=== PATIENT | male | born 1955 | race Caucasian/White ===

== ENCOUNTER → 2020-03-27 09:03 | Outpatient (CLI) | payer OTHER, MEDICARE, SELFPAY ==
[2020-03-27 10:51] LABS: COVID19 -Nasal RAPID Negative (Negative)
== END ==
PROVIDERS: Visit Provider Nurse Practitioner Family
DX: Z01.812 Encounter for preprocedural laboratory examination (principal); Z20.822 Contact with and (suspected) exposure to COVID-19
CPT/HCPCS: 87635

== ENCOUNTER 2020-03-28 09:40 | Day surgery (SDC) | payer OTHER, MEDICARE, SELFPAY ==
[2020-03-28] VITALS (19 sets, daily range): BP systolic 72–164; BP diastolic 7–92; PULSE 63–91; RESP 9–20; TEMP 36.2–37; O2SAT 93–100; BMI 33.3
--- NOTE | 2020-03-28 | DI.RAD.S_ITS ---
PROCEDURE: XR LUMBAR SPINE 2-3V INDICATIONS: L2-3 MICRODISCECTOMY TECHNIQUE: 2 operative views of the lumbar spine were acquired. COMPARISON: [facility], MR, MR LUMBAR SPINE WITHOUT CONTRAST, 01/17/2020, 17:59. FINDINGS: Operative images localize the L2-L3 level posteriorly for surgery. IMPRESSION: Operative imaging localizes L2-L3 posteriorly. Dictated by: Stanislav Daomn M.D. on 03/28/2020 at 12:28 Approved by: Stanislav Damon M.D. on 03/28/2020 at 12:29
--- NOTE | 2020-03-28 10:12 | PM.PREOP ---
Pre-operative Note COVID-19 COVID-19 status: Negative Result date/Date tested (Pos, Neg/Pending): 03/27/20 Interval Note History & Physical reviewed/Exam performed by Physician: Yes Changes to H&P: No
[2020-03-28] MEDS: SODIUM CHLORIDE 0.9% 1,000 ML 84 ML IV ×2 (10:30→13:05)
[2020-03-28] MEDS: CEFAZOLIN 2 GM/100 ML FROZ.PIGGY IV ×2 (10:48→19:20)
--- NOTE | 2020-03-28 11:04 | SUR.OPER ---
Prone on spine table, head in foam head support, padded chest and pelvic supports, gel pad at knees, lower legs supported by pillows; nipples, genitalia and toes free of pressure, arms secured on foam padded arm boards at <90 degrees abduction. Tape over blanket at thigh secured to table.
[2020-03-28] MEDS: SODIUM CHLORIDE 0.9% 1,000 ML, GENTAMICIN 80 MG IRR (11:10)
[2020-03-28] MEDS: THROMBIN (RECOMBINANT) 5,000 UNIT VIAL 5000 UNIT TOP (11:10)
[2020-03-28] MEDS: BUPIVACAINE 0.25% (PF) 8 ML, fentaNYL 100 MCG INJ (11:11)
--- NOTE | 2020-03-28 11:55 | P.OP_ITS ---
Operative Date/Time/Diagnoses Date of procedure: 03/28/20 Time of procedure: 11:56 Pre-op diagnosis: Lumbar disc herniation with radiculopathy History of lumbar laminectomy Post-op diagnosis: same Procedure & Clinicians Procedure: L2-3 revision laminectomy and diskectomy on the left Use of microscope Placement of epidural catheter Same procedure as scheduled: Yes Indications: [age] year old male with intractable pain from a lumbar disc herniation. They had failed conservative management and requested operative intervention. Risks and benefits of surgery were discussed and appropriate consents were obtained. Surgeon: Mustapha Anand Wrapper Hands Sprayer: Ani Canela Anesthesia Type: General Operative Notes Findings: None Closure Type: primary Specimen(s): none sent Estimated Blood Loss (mL): 20 Procedure in detail: Patient was brought to the operating room and intubated on the table. A time-out was performed. There were rolled over the well-padded prone position on the Noah table. The back was prepped and draped in standard sterile fashion. Preoperative antibiotics were given. Using fluoroscopy, a 3 cm incision was made to the well marked left of the midline at the L2-3 level. We used Bovie to come down to and split the fascia. We then used the NuVasive MaXcess dilators with fluoroscopy and then opened our retractors. The inferior aspect was quite scarred in and we had to use the Bovie to cut through the scar tissue to be able to spread our retractor. The soft tissue was cleared off with Bovie, a marker was placed, an x-ray was taken to confirm positioning. We then brought in the microscope. A combination of high-speed bur and Kerrison were used to perform a revision left-sided hemilaminotomy and hemifacetectomy. We carefully tracked along the edge of the lamina with our curette. Once we opened up the lamina at L2-3, we tracked underneath to the L3 lamina and carefully removed the cephalad portion of the lamina as well, carefully clearing off scar adhesions from his last surgery at L3. We carefully retracted the dura and exposed the disc. We swept the ball probe from cephalad to caudally and freed up the extruded fragment away from the undersurface of the dura. This was cleared with bipolar. A scalpel used to perform an annulotomy and a pituitary was used to perform the diskectomy. The ball probe was swept underneath the dura along the disc to make sure there were no further loose fragments. This was also placed into the disc and moved around to make sure there were no further loose fragments. Once everything was adequately decompressed, the wound was copiously irrigated. An epidural catheter was filled with 100 mcg of fentanyl and 8 mL of 0.25% Marcaine. The dura was carefully depressed under the laminotomy site and the catheter was advanced 6 cm cephalad. The retractor was removed and the fascia was closed. The epidural catheter was then injected without resistance and removed. Vancomycin powder was placed in the wound. Superficial and skin were closed. Sterile dressing was placed. The patient was then rolled over, transferred to the stretcher, and brought to recovery room without complications. Complications: none Post-operative Condition: stable Disposition: PACU Plan for aftercare: Overnight admission due to his renal concerns. Up with physical therapy
[2020-03-28] MEDS: INSULIN REGULAR 100 UNIT/ML 3 ML VIAL IV ×2 (12:48→13:22)
[2020-03-28] MEDS: HYDROMORPHONE 2 MG INJ IV ×2 (12:53→12:58)
[2020-03-28] MEDS: fentaNYL 100 MCG/2 ML INJ IV (13:19)
[2020-03-28] MEDS: OXYCODONE/ACETAMINOPHEN 5/325 TABLET 1 TAB PO (13:26)
--- NOTE | 2020-03-28 13:33 | SUR.PHASEI ---
Called into OR around 1310 too report BS of 251after 2 units IV insulin admin and pt's c/o excrutiating pain in R shoulder. States pain in joint, not chest. feels like i was hung from my shoulder. Spoke with Dr Valentin, order for 4 units IV insulin and states pain likely d/t positioning in surgery.
--- NOTE | 2020-03-28 14:01 | SUR.PHASEI ---
pt transported to room 224. Pt continues to report R shoulder pain 8-10 even though he received fentanyl 50mcg, dilaudid 1mg, and 1 percocet. Pt was repostioned on left side which seemed to provide some relief. Suggested hospitalist be notified and I will also notify Dr Anand. Bedside blood sugar showed 227 after receiving 4 units for a BS of 256 and 2 units for BS of 194 prior to transport. Pt stated he had not taken his metformin fro at least 3 days prior to having his procedudre today. WEN Escobedo assumed care of this pt who was in stable condition upon my departure.
[2020-03-28] MEDS: HYDROMORPHONE 0.5 MG INJ IV (14:18)
[2020-03-28] MEDS: SODIUM CHLORIDE 0.9% 1,000 ML 100 ML IV (14:19)
--- NOTE | 2020-03-28 14:19 | PC.NURSE ---
Addendum entered by Fanny Driver R.N. 03/28/20 14:58: Call into , Juliann, she will provide Cylsporine from home as we do not have this strength in house. Update provided on POC.. Pt reporting pain better controlled after Dilaudid. However, Pt is unable to answer all of admit questions now with sedation. Will address with Juliann when she arrives. Report to Araceli York. Original Note: Admission Pt arrived from PACU via stretcher, c/o 10/10 R shoulder pain. Discussed positioning during procedure. Medicated with IV Dilaudid. Pt able to turn L side laying to help with discomfort. Drowsy, but able to wake to voice. IV NS started. Back dressing CDI. CMS +, able to lift legs off bed, difficulty against resistance. CBG checked, had rec'd insulin in PACU. Pt dozing intermittently, continues to report 10/10 pain to shoulder. Reviewed call WILFREDO llamas active. POsitioned for comfort at this time. RA 94%
--- NOTE | 2020-03-28 14:56 | PT-IP ANOTE ---
checked with nurse and stated that pt is not ready for PT. stated that pt is out cold and was given dilauded due to severe pain. will f/u tomorrow.
[2020-03-28] MEDS: INSULIN ASPART 100 UNIT/ML INSULN PEN SUBCUT ×2 (16:31→21:09)
--- NOTE | 2020-03-28 20:51 | RT ---
Went to assess pt for RT consul and jill @ 2032.. Pt is currently sleeping. No respiratory distress noted.
[2020-03-28] MEDS: SODIUM BICARBONATE 650 MG TABLET PO (21:09)
[2020-03-28] MEDS: SENNOSIDES 8.6 MG TABLET 17.2 MG PO (21:14)
[2020-03-28] MEDS: ATORVASTATIN 20 MG TABLET 10 MG PO (21:14)
[2020-03-28] MEDS: DOCUSATE 100 MG CAPSULE PO (21:14)
[2020-03-28] MEDS: MYCOPHENOLATE MOFETIL 500 MG TABLET 1000 MG PO (21:22)
[2020-03-28] MEDS: HYDROCODONE/ACET 5/325 TABLET 1 TAB PO (21:22)
[2020-03-28] MEDS: CYCLOSPORINE MODIFIED 50 MG 100 MG PO (21:35)
[2020-03-29] MEDS: SODIUM CHLORIDE 0.9% 1,000 ML 100 ML IV (00:09)
[2020-03-29 00:21] VITALS: BP 149/99; PULSE 90; RESP 18; O2SAT 98
[2020-03-29 00:50] VITALS: TEMP 37.1
[2020-03-29 03:00] VITALS: BP 148/77; PULSE 62; RESP 16; TEMP 36.7; O2SAT 98
[2020-03-29] MEDS: CEFAZOLIN 2 GM/100 ML FROZ.PIGGY IV (03:08)
[2020-03-29] MEDS: HYDROCODONE/ACET 5/325 TABLET 2 TAB PO (03:14)
[2020-03-29 05:18] LABS: BUN Creatinine Ratio 27.3 (6-22); Blood Urea Nitrogen 54 mg/dL (9-20); Calcium 8.6 mg/dL (8.4-10.2); Carbon Dioxide 18 mmol/L (22-32); Chloride 112 mmol/L (98-107); Glucose 221 mg/dL (80-110); HEMOLYSIS < 15 (0-50); Sodium 134 mmol/L (137-145)
[2020-03-29 05:33] LABS: Potassium 5.8 mmol/L (3.4-5.1)
[2020-03-29 08:00] VITALS: BP 157/91; PULSE 70; RESP 16; TEMP 36.7; O2SAT 98
[2020-03-29] MEDS: DOXAZOSIN 4 MG TABLET 8 MG PO (08:08)
[2020-03-29] MEDS: METOPROLOL ER 50 MG TABLET 200 MG PO (08:08)
[2020-03-29] MEDS: allopurinoL 100 MG TABLET PO (08:09)
[2020-03-29] MEDS: CYCLOSPORINE MODIFIED 25 MG 25 EACH PO (08:10)
[2020-03-29] MEDS: CYCLOSPORINE MODIFIED 50 MG 100 MG PO (08:10)
[2020-03-29] MEDS: DOCUSATE 100 MG CAPSULE PO (08:10)
[2020-03-29] MEDS: predniSONE 5 MG TABLET PO (08:11)
[2020-03-29] MEDS: FUROSEMIDE 20 MG TABLET 10 MG PO (08:11)
[2020-03-29] MEDS: AMLODIPINE 5 MG TABLET PO (08:12)
[2020-03-29] MEDS: HYDROCODONE/ACET 5/325 TABLET 1 TAB PO ×2 (08:13→11:06)
[2020-03-29] MEDS: LOSARTAN 25 MG TABLET PO (08:13)
[2020-03-29] MEDS: METFORMIN HCL 500 MG TABLET PO (08:14)
--- NOTE | 2020-03-29 08:19 | PM.PNPO.1 ---
Subjective Subjective Date Patient Seen: 03/29/20 Time Patient Seen: 08:19 Interval history: He is doing great. He had some right shoulder pain yesterday afternoon but that all resolved. His leg feels much stronger and the back pain feels much better. Exam Vital Signs (past 8 hours): - 03/29/20 00:21 03/29/20 00:50 03/29/20 03:00 Temperature 98.7 F 98.0 F Pulse Rate 90 62 Respiratory Rate 18 16 Blood Pressure 149/99 H 148/77 H Pulse Oximetry 98 98 03/29/20 08:00 Temperature 98.0 F Pulse Rate 70 Respiratory Rate 16 Blood Pressure 157/91 H Pulse Oximetry 98 Oxygen Delivery Method Room Air Oxygen Flow Rate 0 Const Orientation: alert and oriented x3 Other: CDI. 5/5 motor both lower extremities except for unchanged old right footdrop Objective Labs Result Diagrams: 03/29/20 04:50 03/29/20 04:50 Labs: Laboratory Results - last 24 hr 03/29/20 04:50 Sodium 134 L Potassium 5.8 H Chloride 112 H Carbon Dioxide 18 L BUN 54 H Creatinine 1.98 H Estimated GFR 34.0 L BUN/Creatinine Ratio 27.3 H Glucose 221 H Calcium 8.6 PFSH Medical History (Updated 03/26/20 @ 11:18 by Amy James RN) Arthritis CHF (congestive heart failure) Diabetes DMII (diabetes mellitus, type 2) End stage renal disease History of dyspnea History of MRSA infection Hx of diabetic foot ulcer Hyperkalemia Hyperlipidemia Hypertension Leg edema Lumbar disc herniation with radiculopathy Obesity Obstructive sleep apnea Peripheral neuropathy Right foot drop Right rib fracture Surgical History (Updated 03/26/20 @ 11:27 by Amy James RN) H/O arthroscopic knee surgery (~2009) History of cholecystectomy (~2003) History of gastric bypass (~2000) History of laminectomy (~2002) History of lumbar fusion History of total knee arthroplasty S/P panniculectomy (~2000) Status post kidney transplant (~2003) Status post reverse total arthroplasty of left shoulder Social History household members: spouse and family Smoking Status: Never smoker alcohol intake: current Assessment & Plan Post-op Postoperative Procedures: Procedures Operation Date: 03/28/20 11:15 Actual Procedures Side Surgeon p L23 redo discectomy Left Mustapha Anand MD He is doing very well. His BUN and creatinine are centrally unchanged and he is putting out abundant urine. I let him know that his potassium was a little bit elevated but I think that is most likely postoperative reaction. As long as his kidneys are clearing well this should resolve. He feels fine and wants to go home. Plan for discharge. Quality VTE Deep Vein Thrombosis/Pulmonary Embolism Present on Admission: No
[2020-03-29] MEDS: INSULIN ASPART 100 UNIT/ML INSULN PEN SUBCUT (08:21)
--- NOTE | 2020-03-29 09:05 | PT.IIE ---
Current Diagnoses Intervertebral disc disorders with radiculopathy, lumbar region (03/28/20) Arthrodesis status (03/28/20) Surgery Performed Operation Date: 03/28/20 11:15 Actual Procedures p L23 redo discectomy(Left) - Mustapha Anand MD Surgical History (Last Updated 03/26/20 @ 11:27 by Amy James, RN) H/O arthroscopic knee surgery (~2009) History of cholecystectomy (~2003) History of gastric bypass (~2000) History of laminectomy (~2002) History of lumbar fusion History of total knee arthroplasty S/P panniculectomy (~2000) Status post kidney transplant (~2003) Status post reverse total arthroplasty of left shoulder Medical History (Last Updated 03/26/20 @ 11:18 by Amy James, RN) Arthritis CHF (congestive heart failure) Diabetes DMII (diabetes mellitus, type 2) End stage renal disease History of dyspnea History of MRSA infection Hx of diabetic foot ulcer Hyperkalemia Hyperlipidemia Hypertension Leg edema Lumbar disc herniation with radiculopathy Obesity Obstructive sleep apnea Peripheral neuropathy Right foot drop Right rib fracture Physical Therapy Inpatient Evaluation/Re-Eval M1 PT/OT-IP Prior Functional Status Start: 03/29/20 11:45 Freq: NEEDED Status: Active Protocol: Document 03/29/20 09:05 AB (Rec: 03/29/20 12:03 [email or web address]) Medical Review Prior Functional Status Medical History Reviewed Yes Communication able to make needs known Mobility and Gait pt stated that he is modified independent with all mobilities and ambulation using SPC Social History Household Members spouse,family Living Arrangements House Number of Floors (Floors) Two Floors Number of Stairs To Enter/Railing? pt stays on main level of the house but has a lift chair has 3 steps without rails but has brick rios on B side that he hold on to and uses a SPC Home Environment High Toilet,Walk in Shower, Built-In Shower Seat Home Equipment Four Wheel Walker,Straight Cane,Shower Seat with Backrest ,Hand Held Shower Additional Social History Comment pt has an adjustable bed M2 PT-IP Current Condition Start: 03/29/20 11:45 Freq: NEEDED Status: Active Protocol: Document 03/29/20 09:05 AB (Rec: 03/29/20 12:03 AB [email or web address]) Physical Therapy Current Condition Current Condition Evaluation Date 03/29/20 Treatment Diagnosis s/p L2-3 revision lami and discectomy; difficulty in walking Onset Date 03/28/20 Precautions Lumbar Precautions Log Roll,No Twisting,Limit Bending,Lifting Restriction of 10 lbs,Gait Belt above Incisional Area M3 PT-IP Subjective Start: 03/29/20 11:45 Freq: NEEDED Status: Active Protocol: Document 03/29/20 09:05 AB (Rec: 03/29/20 12:03 AB [email or web address]) Subjective Physical Therapy Visit Type Type Initial Evaluation Visit Start Time 09:05 Visit Stop Time 09:42 Total Visit Minutes 42 Number of RESIDENTIAL SALES EXECUTIVE Visits 0 Physical Therapy Visit Comments Patient Comments pt is agreeable to do PT Therapy Pain Assessment Pain When Pain Assessed At Rest Pain Present Pain Present Pain Reported Location back Intensity 2 Scale Used Numeric (0 - 10) Pain Management Techniques Distraction,Modification of Treatment,Re-positioning, Timing of Activity with Medications M4 PT-IP Mobility and Gait Start: 03/29/20 11:45 Freq: NEEDED Status: Active Protocol: Document 03/29/20 09:05 AB (Rec: 03/29/20 12:03 [email or web address]) PT-Bed Mobility Assessment Rolling Type of Rolling Log Rolling Level of Assist Standby Assistance Supine to Sit Supine to Sit Standby Assistance,Head of Bed Elevated Sit to Supine Sit to Supine Minimal Assistance Scooting Scooting to Edge of Bed Standby Assistance PT-Transfer Assessment Sit to and From Stand Sit to and from Stand Standby Assistance Equipment Transfer Assistive Device Gait Belt,Front Wheeled Walker Orthotic/Prosthetic Devices or Brace: Yes Transfers Transfer Destination Bed Transfer Technique ambulated using FWW Transfer Ability Level of Assist Standby Assistance,1 Person Assistance,Use of Upper Extremities Comments Mobility Comments reviewed back precautions and log roll bed mobility with pt. pt was able to recall. pt stated that this is his 5th back surgery. pt sitting on chair. assisted with putting R AFO and shoes on. completed sit to stand SBA and ambulated towards the bed using FWW SBA . completed sit<>supine log roll with HOB elevated min A and SBA to supine to sit. pt completed sit to stand from bed SBA and ambulated ~ 125 ft using FWW SBA. completed up/down steps using 1 rail and SPC CGA. stated that his spouse usually assists him with stair climbing as needed. assisted pt back to his room. ambulated form w/c to chair SBA. positioned on chair. call light and table placed within reach. Gait Assessment Gait Gait Assistance Required: Standby Assistance Distance (Feet) 125 Able to Maintain Weight Bearing Status Yes During Gait Assistive Devices Assistive Device Gait Belt,Front Wheeled Walker Orthotic/Prosthetic Devices or Brace: Yes Gait Deviations General Gait Pattern Antalgic,Decreased Stride Length,Decreased Feet Clearance,Step-to Gait,Wide Based Gait Factors Limiting Gait Function Factors Limiting Gait Function Decreased Activity Tolerance, Decreased Strength,Limited Range of Motion,Pain,Poor Balance Stair Climbing Assessment Evaluation Level of Assist On Stairs Contact Guard Assistance,1 Person Assistance Devices Stair Climbing Assistive Devices Straight Cane,Left Railing, Right Railing Technique/Endurance Stair Climbing Direction Ascend and Descend Stair Climbing Technique Step to Step Number of Steps Climbed 3 Query Text: Stair Climbing Set # Repetitions (reps) 1 Comments Stair Climbing Comments up/down steps using 1 rail + SPC CGA PT-Balance Assessment Sitting Balance and Reactions Static Sitting Balance Ability Good Dynamic Sitting Balance Ability Good Standing Balance and Reactions Static Standing Balance Ability Fair Dynamic Standing Balance Ability Fair Device Used FWW M5 PT-IP Objective Assessments Start: 03/29/20 11:45 Freq: NEEDED Status: Active Protocol: Document 03/29/20 09:05 AB (Rec: 03/29/20 12:03 [id number]) Orientation Orientation/Cognition Level of Alertness Alert Orientation Name,Age,Birthday,Month,Date, Year,Day of Week,Place, Situation Language Function Ability No Deficits Noted Safety Awareness Understands Safety Issues Memory Description No Deficits Noted Gross Range of Motion Lower Extremity ROM Assessment Within Functional Limits Strength Lower Extremity Strength Assessment Bilaterally Impaired Knee L knee extension: 3+/5 R knee extension: 4-/5 ; L knee flexion: 4-/5 Ankle R foot drop Comments Strength Comments r knee flexion: 3+/5 Coordination Assessment Gross Coordination Gross Coordination WNL Sensation Assessment Sensation Sensation Description Numbness Comments Sensation Comments chronic bilateral LE neuropathy from lower legs to B feet per pt Muscle Tone Comments Muscle Tone Comments R ankle foot drop M6 PT-IP Treatment Start: 03/29/20 11:45 Freq: NEEDED Status: Active Protocol: Document 03/29/20 09:05 AB (Rec: 03/29/20 12:03 AB [id number]) Physical Therapy Treatment Education Education Provided Precautions,Weight Bearing Status,Post-Op Packet,Safety M7 PT-IP Assessment and Plan Start: 03/29/20 11:45 Freq: NEEDED Status: Active Protocol: Document 03/29/20 09:05 (Rec: 03/29/20 12:03 [email or web address]) PT Summary Assessment and Plan Potential Rehabilitation Potential Good Status of Condition at Evaluation Stable Summary Impairments Pain,ROM,Strength,Balance, Coordination,Sensation,Tone, Bed Mobility,Transfers,Gait, Activity Tolerance Assessment Summary pt requiring SBA to CGA with mobility and plans to go home with spouse to assist him. pt may go home when medically stable. Goals Bed Mobility Goal Independent Transfer Goal Independent,Four Wheeled Walker Gait Goal Independent,Four Wheel Walker Gait Distance 200 Other Goals up/down 3 steps wall + SPC SBA Days to Meet Goals 3 Frequency of Treatment Frequency Of Treatment Twice a Day Treatment Plan Physical Therapy Treatment Plan Bed Mobility Training,Transfer Training,Gait Training, Therapeutic Exercise,Balance Retraining,Post Op Education, Discharge Planning,Hot or Cold Pack,Neuromuscular Re-ed, Coordination Retraining Recommendations To Nursing Amount of Assist Needed Standby Assistance Discharge Recommendations PT Discharge Recommendations Home with Assistance Transportation Needs at Discharge Private Vehicle
--- NOTE | 2020-03-29 10:29 | OT.IP.EVAL ---
Current Diagnoses Intervertebral disc disorders with radiculopathy, lumbar region (03/28/20) Arthrodesis status (03/28/20) Surgery Performed Operation Date: 03/28/20 11:15 Actual Procedures p L23 redo discectomy(Left) - Mustapha Anand MD Past Medical History (Last Updated 03/26/20 @ 11:18 by Amy James, RN) Arthritis CHF (congestive heart failure) Diabetes DMII (diabetes mellitus, type 2) End stage renal disease History of dyspnea History of MRSA infection Hx of diabetic foot ulcer Hyperkalemia Hyperlipidemia Hypertension Leg edema Lumbar disc herniation with radiculopathy Obesity Obstructive sleep apnea Peripheral neuropathy Right foot drop Right rib fracture Surgical History (Last Updated 03/26/20 @ 11:27 by Amy James, RN) H/O arthroscopic knee surgery (~2009) History of cholecystectomy (~2003) History of gastric bypass (~2000) History of laminectomy (~2002) History of lumbar fusion History of total knee arthroplasty S/P panniculectomy (~2000) Status post kidney transplant (~2003) Status post reverse total arthroplasty of left shoulder Occupational Therapy Inpatient Evaluation/Re-Eval M1 PT/OT-IP Prior Functional Status Start: 03/29/20 11:45 Freq: NEEDED Status: Active Protocol: Document 03/29/20 13:32 CGR (Rec: 03/29/20 13:44 CGR [id number]) Medical Review Prior Functional Status Medical History Reviewed Yes Communication able to make needs known Mobility and Gait pt stated that he is modified independent with all mobilities and ambulation using SPC Activities of Daily Living and IADL's Pt was IND in all ADLs and IADLs. Social History Household Members spouse,family Living Arrangements House Number of Floors (Floors) Two Floors Number of Stairs To Enter/Railing? 3 steps to enter without railing and stays on the main level. Has a chair lift down to the basement level if needed. Home Environment High Toilet,Walk in Shower Home Equipment Front Wheel Walker,Four Wheel Walker,Straight Cane,Manual Wheelchair,Shower Seat with Backrest,Hand Held Shower,Lift Recliner Employment Status Retired Additional Social History Comment Pt has an adjustable bed. M2 OT-IP Current Condition Start: 03/29/20 13:32 Freq: Status: Active Protocol: Document 03/29/20 13:32 CGR (Rec: 03/29/20 13:44 CGR [id number]) Occupational Therapy Current Condition Current Condition Evaluation Date 03/29/20 Treatment Diagnosis L2-3 redo discetomy Diagnosis Onset Date 03/28/20 Post Operative Precautions Lumbar Precautions Log Roll,No Twisting,Limit Bending,Lifting Restriction of 10 lbs,Gait Belt above Incisional Area M3 OT- IP Subjective and Pain Start: 03/29/20 13:32 Freq: Status: Active Protocol: Document 03/29/20 13:32 CGR (Rec: 03/29/20 13:44 CGR [id number]) OT- Subjective Occupational Therapy Visit Type Type Initial Evaluation Visit Start Time 09:48 Visit Stop Time 10:29 Total Visit Minutes 41 OT Pain Assessment Pain When Pain Assessed At Rest Pain Present Pain Present Denied Pain M4 OT- IP ADL's Start: 03/29/20 13:32 Freq: Status: Active Protocol: Document 03/29/20 13:32 CGR (Rec: 03/29/20 13:44 CGR [id number]) OT [id number] Comments OT Self-Feeding Comments Not meal time OT ADL-Grooming General Evaluation Grooming Ability Independent Areas Needing Assistance Retrieving/Set-up of Grooming Items,Combing/Brushing Hair, Face Washing Comments OT Grooming Comments standing at sink OT ADL-Oral Care General Eval Oral Care Ability Independent Areas of Assistance Brushing Teeth Comments Oral Care Comments standing at sink OT ADL-Dressing Comments OT Dressing Comments Provided with hip kit. Pt states he knows how to use each item from previous sx and declines further teaching. OT ADL-Toileting General Evaluation Toileting Ability Independent Areas Needing Assistance Manage Clothing OT ADL-Bathing Comments OT Bathing Comments Not performed M5 OT- IP IADL's Start: 03/29/20 13:32 Freq: Status: Active Protocol: Document 03/29/20 13:32 CGR (Rec: 03/29/20 13:44 CGR [id number]) OT-Instrumental Activities of Daily Living Deficits IADL Deficits Identified No Deficits Home Safety Awareness Awareness of Need for Assistance at Home Good Awareness Ability to Problem Solve Emergency Able to Problem Solve Situations Medication Management Medication Management No Deficits Identified Money Management Money Management No Deficits Identified Meal Preparation Meal Preparation No Deficits Identified Scientific Publications Editor Scientific Publications Editor No Deficits Identified Driving Driving Comments Pt understands that he should not be driving till cleared by his MD. M6 OT- IP Functional Cognition Start: 03/29/20 13:32 Freq: Status: Active Protocol: Document 03/29/20 13:32 CGR (Rec: 03/29/20 13:44 CGR [id number]) Cognitive Factors Limiting Selfcare Function Cognitive Ability Level of Alertness Alert Patient Orientation Name,Age,Birthday,Month,Date, Year,Day of Week,Place, Situation Attention Span Ability Capable of Focused Attention, Capable of Sustained Attention Ability to Follow Commands Able to Follow Multi-Step Commands Memory Description No Deficits Noted Safety Awareness No Deficits Noted Problem Solving Ability No deficits Noted OT- Vision and Hearing OT- Hearing Assessment OT- Hearing Assessment WFL OT- Vision Assessment Visual Attentiveness WFL Occular Pursuits WFL Visual Convergence WFL M7 OT- IP Mobility and Balance Start: 03/29/20 13:32 Freq: Status: Active Protocol: Document 03/29/20 13:32 CGR (Rec: 03/29/20 13:44 CGR [id number]) OT-Transfer Assessment Sit to and From Stand Sit to and from Stand Independent Transfers Transfer Ability Independent Technique Transfer Destination Chair,Toilet Transfer Technique Stand Step Pivot Devices Transfer Assistive Devices Gait Belt,Straight Cane OT- Balance Assessment Sitting Balance and Reactions Static Sitting Balance Ability Good Dynamic Sitting Balance Ability Good M8 OT- IP Objective Assessments Start: 03/29/20 13:32 Freq: Status: Active Protocol: Document 03/29/20 13:32 CGR (Rec: 03/29/20 13:44 CGR [id number]) OT Gross Range of Motion Upper Extremity Range of Motion Assessment Within Functional Limits OT Strength Upper Extremity Strength Assessment Within Functional Limits OT- Coordination Assessment Upper Extremity Finger to Nose Test Within Functional Limits Finger Tapping Test Within Functional Limits OT-Muscle Tone Assessment Muscle Tone WNL Yes OT Sensation Assessment Edema Edema Absent M9 OT- IP Assessment and Plan Start: 03/29/20 13:32 Freq: Status: Active Protocol: Document 03/29/20 13:32 CGR (Rec: 03/29/20 13:44 CGR [id number]) OT Summary Assessment and Plan Potential Rehabilitation Potential Excellent Analytic Complexity at Evaluation Low Summary OT Impairments Balance,Functional Mobility Progress Towards Goals Goals Met Assessment Summary Pt presents as a low complexity evaluation s/p admit for L2-3 redo discetomy. Pt is at or close to his baseline. No further OT needs. Frequency of Treatment Frequency Of Treatment Discharge Discharge Recommendations OT Discharge Recommendations Home with Assistance Transportation Needs at Discharge Private Vehicle
[2020-03-29] MEDS: MYCOPHENOLATE MOFETIL 500 MG TABLET 1000 MG PO (11:06)
--- NOTE | 2020-03-29 11:29 | PC.NURSE ---
Pt up ambulating with PT, pain is well controlled with one norco PRN. Discharge planning started with patient. Juliann, will be in later to pickle cutter patient for transport, all medications from home given, none left in pharmacy. Reivewed all medications with patient, and Dr Corcoran into write d/c orders. IV out and Pt escorted via w/c to private vehicle.
--- NOTE | 2020-03-29 12:04 | CM.DANOTE ---
Discharge Planning/Care Management DCP: asssessment: Case received, EMR reviewed. Discussed in Team Rounds. OT/PT evals were pending today. Note now a d/c order for home setting. Went to room to meet with pt and found he had aleady been cleared for d/c by therapist and had left for home in company of family. No d/c concerns noted by the care team members. [facility] and Medicare Surgeon: Dr. Anand. CM Discharge Assessment Start: 03/29/20 12:03 Freq: Status: Active Protocol: Document 03/29/20 12:04 ITV (Rec: 03/29/20 12:04 ITV [id number]) Discharge Planning Assessment Advance Directives? Yes Advance Directives on File No History Provided By Medical Record Prior Living Arrangements House Household Members spouse,family Is patient alert and oriented? Yes Discharge Plan Home Pre-Anesthesia Assessment Start: 03/25/20 15:46 Freq: Status: Discharge Protocol: Document 03/25/20 15:46 VLJ (Rec: 03/25/20 16:32 [facility] [id number]) Pre-Anesthesia Assessment Preferred Name Bryan Patient Information Reviewed Via Chart Review,Phone Assessment Assessment Completed With Patient Diagnostic Results CBC,EKG,Other Comment Planned covid 0900 DOS Primary Care Provider Latricia Hernandez Medical Clearance Received Yes Seen Specialist in Last 12 Months Yes Specialist Seen Asbestos Siding Mechanic,Detonator Assembler, Orthopedist Comment Detonator Assembler - Dr. Shin Hernandez () Preferred Language Swedish Bar Gauger And Lubricator Tender Required No Height 187.96 cm Hearing Ability Normal Visual Assist Glasses Dentition Type Teeth, Natural Present,Teeth, Missing Barriers to Learning Visual Other Aids No Hx Anesthesia Reactions No Hx Family Anesthesia Reaction No Hx Malignant Hyperthermia No Hx Blood Transfusions No Hx Blood Transfusion Reaction No Anesthesia Review Requested Yes: Done prior to scheduling Additional comment Cleared for surgery by Dr. Solitario Metal Mixer No alcohol intake current alcohol intake frequency 0-2 drinks per day Smoking Status Former smoker Tobacco type cigarettes Smoking pack-years 1 Comment <1 pack year Musculoskeletal Symptoms Abnormal Gait,Back Pain, Difficulty Walking,Joint Swelling,Muscle Cramps,Muscle Weakness,Numbness,Radiating Pain into Limb History of Falling (Recent or History of Yes ) Comment due to not having 'feeling' in his left leg Patient is completely paralyzed or No completely immobile Ambulatory Aid Crutches/cane/walker Prosthesis or Orthotic Device Cane Gait/Transferring Weak,Impaired Mental Status Oriented to own ability Is patient on oxygen? No Does patient have ORNELAS/SOB No Hx Sleep Apnea Yes CPAP/BIPAP use prescribed not used Will Bring CPAP/BIPAP DOS No: No longer has it Comment CPAP Currently Taking a Beta Mayito Yes: Metoprolol Can You Climb a Flight of Stairs Without No: r/t the pain SOB Hx Chest Pain No Hx SOB No Hx Syncope or Dizziness No Anti-Coagulant Therapy No Has a Asbestos Siding Mechanic Yes: Gurinder FERRER) Cardiac Testing Yes: Lexiscan 11/28/19 & in cardiac note Hx Pacemaker/ICD No Cardiac Clearance Received Yes Comment LVEF 59-69%, Chest CT - R 9th rib fracure Diet Type At Home Regular,Other dysphagia No Comment Avoids high potassium foods, small frequent meals Bladder Pattern Frequency,Nocturia,Urgency Urinary Catheter Present No Hx Urinary Self Catheterization No Diabetes Yes Hx Drug Resistant Organism Yes: Negative x3 2006, 2009 Presence of External or Internal Medical Yes: hardware in back Devices Have you had any close contact with No someone diagnosed with COVID-19? Are you experiencing any of these No symptoms symptoms? Evaluation/Screening for possible COVID- Yes 19 infection completed? Comment Planned covid 0900 DOS Marital Status Lives With spouse Prior Living Arrangements House Number of Floors (Floors) Two Floors Number of Stairs To Enter/Railing? lives on main level; chair lift to 2nd level if needed 3 steps into house is a nurse Support System Spouse Does the Patient Have Assistance After Yes Surgery Patient Discharge Plan Description Home Health Feels Safe in Current Environment Yes Been Physically Hurt or Threatened By a No Person in Current Environment Do you have thoughts of harming yourself None or others? Are you currently considering suicide? No Do you have a plan to hurt yourself or No Plan others? Do You Have Any Spiritual Beliefs That No May Affect Your HC Choices? Do You Have Any Cultural Practices That No May Affect Your HC Choices? Who Can We Speak to About Patient's Care Friends and Family Identifying Code for Release of Patient Declined Information Health Care Proxy/Next of Kin Roddy Pina Health Care Proxy Emergency Contact Name - Juliann Pina Emergency Contact Advance Directives? Yes Advance Directives on File No Requested Patient Bring Advanced Yes Directives DOS Power of Photo Mask Cleaner Yes Power of Photo Mask Cleaner Name - Juliann Pina Power of Photo Mask Cleaner PAC Instructions Assistance for 24 hours post- op,Diabetes instructions,Do not shave/clip surgical site, Durable medical equipment, Medications to take/avoid, Nasal antibiotic,No ETOH/ petroleum product on skin DOS, NPO,Post-op transportation,Pre -op antibiotic,Pre-surgical wash,Sensory aids,Sturdy shoes /comfortable clothes,Do not bring valuables and remove jewelry
== END 2020-03-29 11:31 | disposition home or self-care (01) ==
LOC: OR 09:47 → AC 09:48
PROVIDERS: Referring Provider Orthopaedic Surgery; Visit Provider Orthopaedic Surgery
PROC: (CPT 63042; principal; 2020-03-28 11:15)
DX: M51.16 Intervertebral disc disorders with radiculopathy, lumbar region (principal); Z98.1 Arthrodesis status; I10 Essential (primary) hypertension; E78.5 Hyperlipidemia, unspecified; I50.9 Heart failure, unspecified; E11.9 Type 2 diabetes mellitus without complications; Z79.84 Long term (current) use of oral hypoglycemic drugs; R20.0 Anesthesia of skin
CPT/HCPCS: 63042; 36415; 72100; 76000; 80048; 82962; 97116; 97161; 97165; 97535; J0690; J1100; J1170; J2250; J2405; J2704; J3010; J7515

== ENCOUNTER → 2020-06-05 10:59 | Outpatient (CLI) | payer OTHER, MEDICARE, SELFPAY ==
[2020-03-28 09:49] VITALS: BMI 33.3
[2020-06-05 13:15] LABS: COVID19 -Nasal RAPID Negative (Negative)
== END ==
PROVIDERS: Visit Provider Student in an Organized Health Care Education/Training Program
DX: Z20.822 Contact with and (suspected) exposure to COVID-19 (principal)
CPT/HCPCS: 87635